=== PATIENT | male | born 1955 | race African-American/Black ===

== ENCOUNTER → 2025-08-19 09:30 | Outpatient (REF) | payer MEDICARE, SELFPAY ==
--- NOTE | 2025-08-15 14:24 | PN.DIAED02 ---
Referral
DSME Class Series Code: [id number]
Referred For: Diabetes Self-Management Training, Medical Nutrition Therapy, Self-Blood Glucose Monitoring, Long-Term Complication Instruction, Accute Complication Instruction, Continuous Glucose Monitoring, Medication management, Insulin
Instruction, Care Coordination, Disease Management
PHI Release Authorization Form Signed: Yes
Patient Problems:
Current Active Problems
Problem Status Onset
Type 2 diabetes mellitus with hyperglycemia Chronic
Type 2 diabetes mellitus with hyperglycemia Chronic
Demographic
(1) Type 2 diabetes mellitus with hyperglycemia
Status: Chronic
Qualifiers:
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
Code(s): E11.65 - Type 2 diabetes mellitus with hyperglycemia
(2) Type 2 diabetes mellitus with hyperglycemia
Status: Chronic Code(s): E11.65 - Type 2 diabetes mellitus with hyperglycemia
Patient's primary language-: Luxembourgish
Education: Vocation/Trade
Occupation: Retired
- Social
Primary Support Person: Self & spouse, Family
Primary Care Takers: Self & spouse, Family
Living Arrangements: Self & spouse, Family
- Learning Methods
Preferred Method: Reading, Lecture/audio
Barriers to Learning: None
Glycemic Control
- Blood Glucose Monitoring Assessment
Date: 08/15/25
Blood glucose monitoring at home: Yes
Monitor Brands: Other (unsure of brand)
Frequency: 1x per day
Time: fasting
- Hyperglycemia Assessment
Experiences Hyperglycemia: Yes
Frequency: 4-6x per week
- Blood Glucose Monitoring Results
Source: self-report (FBS 160-183)
- Hemoglobin A1c
Date: 08/08/25
A1C Percentage (%): 8.1
Medical History of Diabetes
Family Diabetes History: Mother
Previous Diabetes Education: No
Previous visit with Dietitian: No
Complications/Comorbidity/Specialist: Gastrointestinal disease, Hypertension (AMLODIPINE BESYLATE 10 MG QD; DOXAZOSIN MESYLATE 2 MG QD; METOPROLOL SUCCINATE 34 NO DOSE INDICATED), Metabolic (DM: METFORMIN BID - UNSURE OF DOSE), Pancreatitis
(OMEPRAZOLE 40 MG BID)
Current Home Medication
- Insulin Management
Patient adjusts own insulin dosages: No
Measures
- Anthropometrics
Height: 6 ft
Actual Weight: 200 lb 6.4 oz
- Blood Pressure / Pulse
Blood pressure: 113/73
Pulse: 83
Self-Care
- Tobacco Usage
Do you now, or have you ever smoked?: Quit more than 1 year ago
- Alcohol & Drugs Usage
Drinks Alcohol: No (FORMER DRINKER, WAS RECENTLY IP WITH PANCREATITIS 2/2 ETOH)
- Meals & Dining
Meals & Dining: Patient skips meals: No, Food Intolerance / Allergy: No, Cultural / Mosque Dietary Needs: No
Primary Driver'S License Reviewing Officer: Spouse
Dining Out Frequency: 1-3x per week
- Physical Activity
Physical Limitation: No
Patient participates in physical Activity: Yes
Activity Types: walking
Frequency: 1-2x per week
- Self Foot-Care
Foot Problems: Neuropathy
- Patient-Self Assessment
Diabetes Knowledge: Poor
Feelings About Diabetes: Acceptance
General Health: Good
Importance of Health: Extremely
Stress Level: Low
Diabetes Interferes With:: Nothing
Barriers to Diabetes Management: Nothing
Depression Survey Score: 0
- Diabetes Identification
Carries Diabetes Identification: No
Diabetes Identification Information Provided: Yes
Care Plan
- Education Needs
Patient Education Needs: Diabetes disease process, Chronic complications, Acute complications, Medication, Monitoring, Physical activity, Psychosocial Adjustment, Nutritional management, Goal setting & problem solving
Recommended Diabetes Training Program based on assessment: Outpatient Diabetes Education Program
- Plan of Care
Plan of Care:
08/15/2025 DSME INITIAL CONSULTATION
Met with participant and his today for registration and initiation of Diabetes Self-management. Pt was recommended by his PCP, he was recently inpatient with pancreatitis secondary to alcohol use. His BS upon admission to [facility] was 540
mg/dL. He recently completed labs, is unsure of his HbA1c. He states his BP is controlled, KFT WNL, and liver enzymes have 'improved'.
He takes Metformin BID, unsure of dose. Also takes ASA 81 mg QD, in addition to medications documented herein. Started monitoring his glucose QD, results range from 160-183 mg/dL fasting AM. His next PCP follow up is in 3 months. Eye exam is
pending August 2025.
We discussed blood sugar testing, recommended he check once a day in the AM and alternate 2 hours after meals and review with provider.
We reviewed complications of diabetes, fasting and 2 hour post prandial glucose goals, signs and symptoms of hyperglycemia, signs and symptoms of hypoglycemia, and hypoglycemia protocol. We discussed exercise recommendations of at least 30 minutes
per day to help lower glucose levels. He currently walks twice a week.
I reviewed and provided diabetes management booklet, insurance billing code and advised he contact her health plan to discuss coverage and cost.
He has phone # for office if additional needs arise prior to class.
--- NOTE | 2025-08-20 12:15 | PN.DIAED14 ---
This is to notify you that your patient with diabetes, YOSEPH RIVERA ( 1955), has enrolled in our diabetes self-management classes that are being held at [facility].
These classes will include an introduction to diabetes, diet, medication, exercise and prevention of complications. At the end of our class series, you will receive a report of your patient's participation and progress for your records.
Please contact me at the Diabetes [facility], , if there is any particular information regarding your patient that might be helpful to me.
Sincerely,
Javed CAMPBELL-MANUEL, [facility]
--- NOTE | 2025-08-20 12:15 | PN.DIAED04 ---
Education Record
- Education Record
Class Attended: Class 1
DSME Class Series Code: [id number]
Instructor: Registered Nurse (Alyssa Hou RN)
Class Curriculum:
Outpatient Diabetes Education Program:
Class 1 (120 minutes)
Describe the diabetes disease process and treatment options
Diabetes management
Develop personal strategies to promote health and behavior change
Integrate psychosocial adjustment for daily living
Monitor blood glucose and other parameters. Interpret and use the results for self-management decision making
Prevent, detect, and treat acute complications
Class Length (mins): 120
Post-Class 1 Test Score (%): 94
--- NOTE | 2025-08-20 15:25 | PN.DIAED04 ---
Education Record
- Education Record
Class Attended: Other ([facility] INITIAL ASSESSMENT)
[facility] Class Series Code: [id number]
Instructor: Registered Nurse (Alyssa Hou RN)
Pre-Program Knowledge: No knowledge
Pre-Test Score (%): 38
Goals
- Goal 1
Being Active: Exercise 30 minutes-5 times per week
Goals To Be Evaluated: Exercise 30 mins-5x/week
- Goal 2
Healthy Eating: Follow meal plan
Goals To Be Evaluated: Follow meal plan
- Goal 3
Monitoring: Monitor more often (currently checks QD, asked him to check 2 hours after varying meals.)
Goals To Be Evaluated: Monitor more often
== END ==
LOC: DES 09:30
PROVIDERS: ATTENDING PHYSICIAN Internal Medicine
DX: E11.9 Type 2 diabetes mellitus without complications (principal)
CPT/HCPCS: 99078

== ENCOUNTER → 2025-08-26 08:30 | Outpatient (REF) | payer MEDICARE, SELFPAY ==
--- NOTE | 2025-08-27 09:19 | PN.DIAED04 ---
Education Record
- Education Record
Class Attended: Class 2
DSME Class Series Code: [id number]
Instructor: Registered Dietitian (Radha Pereira, RD, LDN, CDE)
Class Curriculum:
Outpatient Diabetes Education Program:
Class 2 (120 minutes)
Incorporate nutritional management into lifestyle
Understanding nutritional value
Understanding carbohydrate counting
Class Length (mins): 120
== END ==
LOC: DES 08:30
PROVIDERS: ATTENDING PHYSICIAN Internal Medicine
DX: E11.9 Type 2 diabetes mellitus without complications (principal)
CPT/HCPCS: 99078

== ENCOUNTER → 2025-09-09 09:10 | Outpatient (REF) | payer MEDICARE, SELFPAY ==
--- NOTE | 2025-09-10 09:23 | PN.DIAED04 ---
Education Record
- Education Record
Class Attended: Class 4
DSME Class Series Code: [id number]
Instructor: Registered Nurse (Alyssa Hou RN)
Class Curriculum:
Outpatient Diabetes Education Program:
Class 4 (120 minutes)
Develop personal strategies to promote health and behavior change
Incorporate physical activity into lifestyle
Utilize medications safety for maximum therapeutic effectiveness
Understand different medication/insulin mechanism of action
Preparing for travel
Class Length (mins): 120
Post-Class 4 Test Score (%): 73
== END ==
LOC: DES 09:10
PROVIDERS: ATTENDING PHYSICIAN Internal Medicine
DX: E11.9 Type 2 diabetes mellitus without complications (principal)
CPT/HCPCS: 99078